=== PATIENT | female | born 1945 | race Asian ===

== ENCOUNTER 2017-11-25 12:42 | Emergency (ER) | payer MEDICARE, MEDICAID ==
[~2017-11-25] VITALS: Ht 152.4 cm; Wt 51.0 kg
[2017-11-25 12:43] VITALS: BP 130/77; PULSE 88; RESP 16; TEMP 98.3; O2SAT 98
--- NOTE | 2017-11-25 15:37 | PD ---
HPI Chief Complaint: Injury Time Seen by Provider: 15:31 Travel History International Travel<30 days: No Contact w/Intl Traveler<30days: No Traveled to known affect area: No History of Present Illness HPI 72-year-old female complains of left knee pain. Patient fell and twisted her left knee yesterday afternoon. Patient states the pain is sharp pain most localized to the medial aspect of the left knee. Patient denies any pain radiation. Patient states the pain is worse with movement and the left knee joint. On a scale of 1-10 the pain is an 8. Patient denies any other injury. PFSH Past Medical History ?: Not Social History Tobacco Use: No Allergies-Medications (Allergen,Severity, Reaction): Coded Allergies: No Known Allergies (Unverified , 11/25/17) Reported Meds & Prescriptions Reported Meds & Active Scripts Active Ultram (Tramadol HCl) 50 Mg Tab 50 Mg PO Q6H PRN Mobic (Meloxicam) 15 Mg Tab 15 Mg PO DAILY Review of Systems General / Constitutional: No: Fever Eyes: No: Visual changes HENT: No: Headaches Cardiovascular: No: Chest Pain or Discomfort Respiratory: No: Shortness of Breath Gastrointestinal: No: Abdominal Pain Genitourinary: No: Dysuria Musculoskeletal: Positive: Pain Skin: No Rash Neurologic: No: Weakness Psychiatric: No: Depression Endocrine: No: Polydipsia Hematologic/Lymphatic: No: Easy Bruising Physical Exam Narrative GENERAL: Well-nourished, well-developed patient. SKIN: Focused skin assessment warm/dry. HEAD: Normocephalic. EYES: No scleral icterus. No injection or drainage. NECK: Supple, trachea midline. No JVD or lymphadenopathy. CARDIOVASCULAR: Regular rate and rhythm without murmurs, gallops, or rubs. RESPIRATORY: Breath sounds equal bilaterally. No accessory muscle use. GASTROINTESTINAL: Abdomen soft, non-tender, nondistended. MUSCULOSKELETAL: No cyanosis, or edema. BACK: Nontender without obvious deformity. No CVA tenderness. Patient has moderate tenderness and palpation medial collateral ligament of the left knee. Mild soft tissue swelling medial aspect the left knee. Limited range of motion of left knee joint secondary to pain. The joints stable. No effusion noted. Data Data Last Documented VS Vital Signs Date Time Temp Pulse Resp B/P (MAP) Pulse Ox O2 Delivery O2 Flow Rate FiO2 11/25/17 12:43 98.3 88 16 130/77 (94) 98 Orders Orders Knee, Complete (4vws) (11/25/17 15:33) Splint Or Brace Apply/Monitor (11/25/17 16:42) Ibuprofen (Motrin) (11/25/17 16:45) Ed Discharge Order (11/25/17 16:51) Immobilizer Knee 20 Inch (11/25/17 ) MDM Medical Decision Making Medical Screen Exam Complete: Yes Emergency Medical Condition: Yes Interpretation(s) 1646 PM. X-ray left knee shows no acute bony injury. Differential Diagnosis Differential diagnosis includes sprain, fracture, dislocation. Narrative Course 72-year-old female with left knee injury. Diagnosis Primary Impression: Left knee sprain Qualified Codes: S83.412A - Sprain of medial collateral ligament of left knee , initial encounter Patient Instructions: General Instructions Additional Instructions: Knee immobilizer. Take medications as needed for pain. Follow-up with an orthopedist. Scripts Tramadol (Ultram) 50 Mg Tab 50 MG PO Q6H Y for PAIN, #20 TAB 0 Refills Prov: Chalo Akins MD 11/25/17 Meloxicam (Mobic) 15 Mg Tab 15 MG PO DAILY for Pain, #30 TAB 0 Refills Prov: Chalo Akins MD 11/25/17 Disposition: 01 DISCHARGE HOME Condition: Stable Chalo Akins MD Nov 25, 2017 15:36
[2017-11-25] MEDS ORDERED: IBUPROFEN 600 MG TAB PO ONE (16:45)
[2017-11-25] MEDS ORDERED: TRAM50 PO (16:48)
[2017-11-25] MEDS ORDERED: MOBI15TA PO (16:48)
--- NOTE | 2017-11-25 16:50 | RADRPT ---
EXAM DATE/TIME: 11/25/2017 16:10 [facility] COMPARISON: No previous studies available for comparison. INDICATIONS : Left knee pain MEDICAL HISTORY : None. SURGICAL HISTORY : None. ENCOUNTER: Initial ACUITY: 1 day PAIN SCORE: 5/10 LOCATION: Left knee FINDINGS: 4 views left knee. Horizontal linear sclerosis of the medial tibial condyle 1.7 cm distal to the join t. Alignment within normal limits. Small joint effusion. No evidence of joint narrowing. CONCLUSION: 1. Linear horizontal sclerosis of the medial tibial condyle suggesting nondisplaced incomplete fractu re in the setting of acute trauma. 2. Small joint effusion. Yosvany Novoa MD on November 25, 2017 at 16:46 Board Certified Radiologist. This report was verified electronically.
== END 2017-11-25 17:14 | disposition home or self-care (01) ==
LOC: NEPD 12:42
DX: S83.412A Sprain of medial collateral ligament of left knee, initial encounter (principal); W19.XXXA Unspecified fall, initial encounter
CPT/HCPCS: 73564; 99284; L1830